=== PATIENT | female | born 1945 | race Caucasian/White ===

== ENCOUNTER 2023-12-12 18:12 | Inpatient (IN) ==
[2023-12-12] MEDS ORDERED: IOPAMIDOL 100 ML BOTTLE IV ONE (18:13)
[2023-12-12 19:07] LABS: Basophils # (Auto) 0.01 K/mcL (0.00-0.30); Basophils % (Auto) 0.1 % (0.0-2.0); Eosinophils # (Auto) 0.16 K/mcL (0.00-0.70); Hematocrit 42.6 % (34.1-44.9); Hemoglobin 14.5 g/dL (11.2-15.7); Lymphocytes # (Auto) 1.15 K/mcL (1.50-4.80); Lymphocytes % (Auto) 14.1 % (15.5-49.0); Mean Cell Volume 99.1 fL (80.0-100.0); Mean Platelet Volume 12.6 fL (8.8-12.5); Monocytes % (Auto) 11.1 % (1.0-12.0); Neutrophils % (Auto) 72.5 % (38.0-78.0); Platelet Count 139 K/mcL (140-440); Red Cell Distribution Width 12.4 % (11.5-14.5); WBC 8.1 K/mcL (4.5-11.0)
[2023-12-12] MEDS: PIPERACILLIN SODIUM/TAZOBACTAM 3.375 GM in DEXTROSE 5% IN WATER 50 ML IV ONE (20:36)
[2023-12-12 21:00] LABS: ALT/SGPT 17 U/L (<40); AST/SGOT 21 U/L (<32); Albumin 3.4 gm/dL (3.2-5.2); Albumin/Globulin Ratio 1.2 (1.0-2.3); Alkaline Phosphatase 86 U/L (39-117); Bilirubin,Total 0.5 mg/dL (0.1-1.0); Blood Urea Nitrogen 30 mg/dL (8-23); Calcium 8.9 mg/dL (8.6-10.4); Carbon Dioxide 23 mmol/L (22-30); Chloride 97 mmol/L (96-108); Globulin 2.9 gm/dL (2.2-3.7); Glomerular Filtration Rate 60; Glucose 156 mg/dL (70-105); Potassium 3.9 mmol/L (3.3-5.1); Sodium 131 mmol/L (133-145)
[2023-12-12 21:02] LABS: Appearance,Urine Clear (Clear); Bilirubin,Urine Negative (Negative); Color,Urine Yellow; Glucose,Urine (UA) Negative (Negative); Ketones,Urine Trace mg/dL (Negative); Leukocyte Esterase,Urine Negative /uL (Negative); Nitrate,Urine Negative (Negative); Protein,Urine Negative (Negative); Urine Blood Trace-intact ery/mcL (Negative); Urine RBC 1 /hpf (0-3); Urine Squamous Epithelial Cell 2 /hpf (0-4); Urine WBC 1 /hpf (0-4); Urobilinogen,Urine Normal
[2023-12-12] MEDS: metroNIDAZOLE 500 MG/100 ML BAG IV SCH (21:55)
[2023-12-12] MEDS: DEXTROSE 5%-LR 1,000 ML IV SCH (22:12)
[2023-12-12] MEDS: CIPROFLOXACIN 400 MG/200 ML BAG IV SCH (22:56)
[2023-12-12] MEDS ORDERED: fentaNYL 100 MCG/2 ML VIAL ONE (23:00)
[2023-12-12] MEDS ORDERED: PROPOFOL 200 MG/20 ML VIAL IV ONE (23:00)
[2023-12-12] MEDS ORDERED: LIDOCAINE 2% PF 5 ML VIAL ONE (23:01)
[2023-12-12] MEDS ORDERED: ONDANSETRON 4 MG/2 ML VIAL ONE (23:01)
[2023-12-12] MEDS ORDERED: MAGNESIUM SULFATE 2 GM/50 ML BAG IV ONE (23:01)
[2023-12-12] MEDS ORDERED: ROCURONIUM 10 MG/ML ML IV ONE (23:01)
[2023-12-12] MEDS ORDERED: DEXAMETHASONE 10 MG/ML VIAL ONE (23:01)
[2023-12-12] MEDS: BUPIVACAINE W/EPI 0.5% 50 ML VIAL IJ ONE (23:59)
[2023-12-13] MEDS ORDERED: PHENYLephrine 1 MG/10 ML SYRINGE (ANEST) ONE
[2023-12-13] MEDS ORDERED: ONDANSETRON 4 MG/2 ML VIAL IV PRN (00:52)
[2023-12-13] MEDS ORDERED: LACTATED RINGERS 250 ML IV PRN (00:52)
[2023-12-13] MEDS ORDERED: IPRATROPIUM/ALBUTEROL 3 ML AMPUL.NEB NEB PRN (00:52)
[2023-12-13] MEDS ORDERED: diphenhydrAMINE 50 MG/ML VIAL IV PRN (00:52)
[2023-12-13] MEDS ORDERED: fentaNYL 100 MCG/2 ML VIAL IV PRN (00:52)
[2023-12-13] MEDS ORDERED: NALOXONE HCL 0.4 MG/ML VIAL IV PRN (00:52)
[2023-12-13] MEDS ORDERED: MEPERIDINE 25 MG/ML VIAL IV PRN (00:52)
[2023-12-13] MEDS ORDERED: SUGAMMADEX SODIUM 200 MG/2 ML VIAL IV ONE (01:03)
[2023-12-13] MEDS: ACETAMINOPHEN 1,000 MG/100 ML BAG IV ONE (01:37)
[2023-12-13] MEDS: LACTATED RINGERS 1,000 ML IV SCH (02:02)
[2023-12-13 06:40] LABS: Hematocrit 41.5 % (34.1-44.9); Hemoglobin 14.2 g/dL (11.2-15.7); Mean Cell Volume 98.8 fL (80.0-100.0); Mean Corpuscular HGB Conc 34.2 g/dL (31.0-36.0); Mean Platelet Volume 11.8 fL (8.8-12.5); Platelet Count 133 K/mcL (140-440); Red Cell Distribution Width 12.4 % (11.5-14.5); WBC 9.4 K/mcL (4.5-11.0)
[2023-12-13 06:55] LABS: Blood Urea Nitrogen 24 mg/dL (8-23); Calcium 8.4 mg/dL (8.6-10.4); Carbon Dioxide 22 mmol/L (22-30); Chloride 96 mmol/L (96-108); Glomerular Filtration Rate 60; Glucose 314 mg/dL (70-105); Potassium 3.2 mmol/L (3.3-5.1); Sodium 130 mmol/L (133-145)
[2023-12-13] MEDS: HYDROmorphone 0.5 MG/0.5 ML SYRINGE IV PRN (10:17)
[2023-12-13] MEDS: OMEPRAZOLE 20 MG CAPSULE PO ONE (14:59)
[2023-12-13] MEDS: DEXTROSE 5%-LR 1,000 ML IV SCH (20:32)
[2023-12-14] MEDS: PANTOPRAZOLE 40 MG VIAL IV SCH (00:39)
[2023-12-14] MEDS: ONDANSETRON 4 MG/2 ML VIAL ONE (00:39)
[2023-12-14] MEDS: METOCLOPRAMIDE 10 MG/2 ML VIAL ONE (00:39)
[2023-12-14] MEDS: METOCLOPRAMIDE 10 MG/2 ML VIAL IV ONE (00:40)
[2023-12-14] MEDS: ONDANSETRON 4 MG/2 ML VIAL IV PRN (00:40)
[2023-12-14] MEDS: PANTOPRAZOLE 40 MG VIAL IV ONE (00:49)
[2023-12-14 06:42] LABS: Hematocrit 38.7 % (34.1-44.9); Hemoglobin 12.8 g/dL (11.2-15.7); Mean Cell Volume 102.4 fL (80.0-100.0); Mean Corpuscular HGB Conc 33.1 g/dL (31.0-36.0); Mean Platelet Volume 11.6 fL (8.8-12.5); Platelet Count 129 K/mcL (140-440); RBC 3.78 M/mcL (3.59-5.38); Red Cell Distribution Width 12.6 % (11.5-14.5); WBC 9.7 K/mcL (4.5-11.0)
[2023-12-14 07:22] LABS: Blood Urea Nitrogen 24 mg/dL (8-23); Calcium 8.7 mg/dL (8.6-10.4); Carbon Dioxide 23 mmol/L (22-30); Chloride 99 mmol/L (96-108); Glomerular Filtration Rate 82; Glucose 148 mg/dL (70-105); Potassium 3.3 mmol/L (3.3-5.1); Sodium 131 mmol/L (133-145)
[2023-12-14] MEDS ORDERED: POTASSIUM CHLORIDE 10 MEQ TABLET PO SCH (08:00)
[2023-12-14] MEDS ORDERED: OMEPRAZOLE 20 MG CAPSULE PO SCH (09:00)
[2023-12-14] MEDS ORDERED: ATORVASTATIN 20 MG TABLET PO SCH (09:00)
[2023-12-14] MEDS ORDERED: LISINOPRIL 5 MG TABLET PO SCH (09:00)
[2023-12-14] MEDS: VIT A,C & E/LUTEIN/MINERALS TABLET PO SCH (09:58)
[2023-12-14] MEDS: LISINOPRIL 5 MG TABLET PO SCH (09:58)
[2023-12-14] MEDS: ATORVASTATIN 20 MG TABLET PO SCH (09:58)
[2023-12-14] MEDS: TRIAMTERENE/HYDROCHLOROTHIAZID 1 CAP CAPSULE PO SCH (09:58)
[2023-12-14] MEDS: OMEPRAZOLE 20 MG CAPSULE PO SCH (16:37)
[2023-12-15 06:55] LABS: Basophils # (Auto) 0.01 K/mcL (0.00-0.30); Basophils % (Auto) 0.1 % (0.0-2.0); Eosinophils # (Auto) 0.08 K/mcL (0.00-0.70); Eosinophils % (Auto) 0.8 % (0.0-7.0); Hematocrit 34.9 % (34.1-44.9); Hemoglobin 11.9 g/dL (11.2-15.7); Lymphocytes # (Auto) 0.85 K/mcL (1.50-4.80); Lymphocytes % (Auto) 8.8 % (15.5-49.0); Mean Cell Volume 99.4 fL (80.0-100.0); Mean Corpuscular HGB Conc 34.1 g/dL (31.0-36.0); Mean Platelet Volume 11.3 fL (8.8-12.5); Monocytes # (Auto) 0.81 K/mcL (0.10-0.90); Monocytes % (Auto) 8.4 % (1.0-12.0); Neutrophils % (Auto) 81.3 % (38.0-78.0); Platelet Count 125 K/mcL (140-440); RBC 3.51 M/mcL (3.59-5.38); Red Cell Distribution Width 12.5 % (11.5-14.5); WBC 9.6 K/mcL (4.5-11.0)
[2023-12-15 07:49] LABS: Blood Urea Nitrogen 14 mg/dL (8-23); Calcium 8.1 mg/dL (8.6-10.4); Carbon Dioxide 24 mmol/L (22-30); Chloride 99 mmol/L (96-108); Glomerular Filtration Rate 82; Glucose 156 mg/dL (70-105); Potassium 3.2 mmol/L (3.3-5.1); Sodium 131 mmol/L (133-145)
[2023-12-15] MEDS: DEXTROSE 5%-LR 1,000 ML IV SCH (12:01)
[2023-12-16] MEDS: PANTOPRAZOLE 40 MG TABLET PO SCH (17:23)
[2023-12-17] MEDS: metroNIDAZOLE 500 MG TABLET PO SCH (13:52)
[2023-12-17] MEDS ORDERED: ACETAMINOPHEN 325 MG TABLET PO PRN (14:26)
[2023-12-17] MEDS: CIPROFLOXACIN 500 MG TABLET PO SCH (21:15)
[2023-12-18 06:21] LABS: Hematocrit 33.6 % (34.1-44.9); Hemoglobin 11.8 g/dL (11.2-15.7); Mean Cell Volume 97.1 fL (80.0-100.0); Mean Corpuscular HGB Conc 35.1 g/dL (31.0-36.0); Mean Platelet Volume 10.6 fL (8.8-12.5); Platelet Count 166 K/mcL (140-440); RBC 3.46 M/mcL (3.59-5.38); Red Cell Distribution Width 12.2 % (11.5-14.5); WBC 8.1 K/mcL (4.5-11.0)
[2023-12-18 06:47] LABS: Blood Urea Nitrogen 10 mg/dL (8-23); Calcium 8.7 mg/dL (8.6-10.4); Carbon Dioxide 25 mmol/L (22-30); Chloride 99 mmol/L (96-108); Glomerular Filtration Rate 82; Glucose 122 mg/dL (70-105); Potassium 3.4 mmol/L (3.3-5.1); Sodium 134 mmol/L (133-145)
== END 2023-12-18 14:22 | disposition home or self-care (01) ==
LOC: ED 18:12 → SUR 23:11 → MEDSUR 12-13 01:45
PROVIDERS: ADMIT Surgery Surgical Critical Care; ATTEND Surgery Surgical Critical Care
PROC: LAPAPPY (ICD-10-PCS; 2023-12-12 23:40)

== ENCOUNTER 2024-06-23 06:32 | Inpatient (IN) ==
[2024-06-23] MEDS ORDERED: IOPAMIDOL 100 ML BOTTLE IV ONE (06:33)
[2024-06-23 07:29] LABS: Basophils # (Auto) 0.01 K/mcL (0.00-0.30); Basophils % (Auto) 0.5 % (0.0-2.0); Eosinophils # (Auto) 0 K/mcL (0.00-0.70); Eosinophils % (Auto) 0 % (0.0-7.0); Hematocrit 38.6 % (34.1-44.9); Lymphocytes # (Auto) 0.37 K/mcL (1.50-4.80); Lymphocytes % (Auto) 19.4 % (15.5-49.0); Mean Corpuscular HGB Conc 33.7 g/dL (31.0-36.0); Mean Platelet Volume 12.1 fL (8.8-12.5); Monocytes # (Auto) 0.36 K/mcL (0.10-0.90); Monocytes % (Auto) 18.8 % (1.0-12.0); Neutrophils % (Auto) 60.8 % (38.0-78.0); Platelet Count 78 K/mcL (140-440); RBC 3.94 M/mcL (3.59-5.38); Red Cell Distribution Width 12.9 % (11.5-14.5); WBC 1.9 K/mcL (4.5-11.0)
[2024-06-23 07:34] LABS: Partial Thromboplastin Time 29.2 sec (20.0-37.0); Prothrombin Time 14.1 sec (11.9-14.5)
[2024-06-23] MEDS: ASPIRIN 81 MG TAB.CHEW CHEWED ONE (07:35)
[2024-06-23 07:37] LABS: ALT/SGPT 18 U/L (<40); AST/SGOT 19 U/L (<32); Albumin 2.7 gm/dL (3.2-5.2); Albumin/Globulin Ratio 1.2 (1.0-2.3); Alkaline Phosphatase 55 U/L (39-117); Bilirubin,Total 0.4 mg/dL (0.1-1.0); Blood Urea Nitrogen 19 mg/dL (8-23); Calcium 8.3 mg/dL (8.6-10.4); Carbon Dioxide 22 mmol/L (22-30); Chloride 98 mmol/L (96-108); Globulin 2.2 gm/dL (2.2-3.7); Glomerular Filtration Rate 69; Glucose 126 mg/dL (70-105); Potassium 3.3 mmol/L (3.3-5.1); Sodium 129 mmol/L (133-145)
[2024-06-23] MEDS: 0.9 % SODIUM CHLORIDE 1,000 ML IV ONE ×2 (07:47→14:34)
[2024-06-23 07:55] LABS: Alcohol, Blood < 10.1 mg/dL; Alcohol,Blood < 0.010 gm/dL (<0.010)
[2024-06-23 08:45] LABS: Appearance,Urine Clear (Clear); Bilirubin,Urine Negative (Negative); Color,Urine Yellow; Glucose,Urine (UA) Negative (Negative); Ketones,Urine Trace mg/dL (Negative); Leukocyte Esterase,Urine Negative /uL (Negative); Nitrate,Urine Negative (Negative); Protein,Urine Negative (Negative); Specific Gravity,Urine 1.015 (1.000-1.035); Urine Blood Negative ery/mcL (Negative); Urine RBC 0 /hpf (0-3); Urine Squamous Epithelial Cell 0 /hpf (0-4); Urine WBC 1 /hpf (0-4); Urobilinogen,Urine Normal
[2024-06-23] MEDS: ceFAZolin 1 GM VIAL IV ONE (10:51)
[2024-06-23] MEDS: DIPH,PERTUSS(ACELL),TET VAC/PF 0.5 ML SYRINGE IM ONE (10:51)
[2024-06-23 12:39] LABS: Band Neutrophils % 2 % (0-10); Basophils % (Manual) 1 % (0-2); Eosinophils % (Manual) 2 % (0-7); Lymphocytes % 16 % (15-49); Monocytes % (Manual) 17 % (1-12); Platelet Estimate DECREASED (Normal); RBC Morphology NORMAL (Normal); Segmented Neutrophils % 63 % (38-78)
[2024-06-23] MEDS ORDERED: MAGNESIUM SULFATE 2 GM/50 ML BAG IV PRN (13:41)
[2024-06-23] MEDS ORDERED: IPRATROPIUM/ALBUTEROL 3 ML AMPUL.NEB NEB PRN (13:41)
[2024-06-23] MEDS ORDERED: METOCLOPRAMIDE 10 MG/2 ML VIAL IV PRN (13:41)
[2024-06-23] MEDS ORDERED: METOPROLOL TARTRATE 5 MG/5 ML VIAL IV PRN (13:41)
[2024-06-23] MEDS ORDERED: SENNOSIDES 1 TABLET PO PRN (13:41)
[2024-06-23] MEDS ORDERED: POTASSIUM CHLORIDE 40 MEQ in DEXTROSE 5% IN WATER 500 ML IV PRN (13:41)
[2024-06-23] MEDS ORDERED: POLYETHYLENE GLYCOL 3350 17 GM PACKET PO PRN (13:41)
[2024-06-23] MEDS ORDERED: ONDANSETRON 4 MG/2 ML VIAL IV PRN (13:41)
[2024-06-23] MEDS ORDERED: POTASSIUM CHLORIDE 20 MEQ TABLET PO PRN (13:41)
[2024-06-23] MEDS: CEPHALEXIN 500 MG CAPSULE PO SCH (14:34)
[2024-06-23] MEDS: MAGNESIUM SULFATE 2 GM/50 ML BAG IV ONE (14:35)
[2024-06-23] MEDS: ACETAMINOPHEN 325 MG TABLET PO PRN (20:33)
[2024-06-24 06:55] LABS: ALT/SGPT 18 U/L (<40); AST/SGOT 24 U/L (<32); Albumin 2.9 gm/dL (3.2-5.2); Albumin/Globulin Ratio 1.4 (1.0-2.3); Alkaline Phosphatase 62 U/L (39-117); Bilirubin,Direct < 0.2 mg/dL (0-0.3); Bilirubin,Total 0.3 mg/dL (0.1-1.0); Blood Urea Nitrogen 18 mg/dL (8-23); Calcium 8.4 mg/dL (8.6-10.4); Carbon Dioxide 22 mmol/L (22-30); Chloride 101 mmol/L (96-108); Globulin 2.1 gm/dL (2.2-3.7); Glomerular Filtration Rate 82; Glucose 97 mg/dL (70-105); Lactate Dehydrogenase 153 U/L (135-225); Phosphorous 2.8 mg/dL (2.5-4.5); Potassium 3.4 mmol/L (3.3-5.1); Sodium 132 mmol/L (133-145); Triglycerides 52 mg/dL (<150); Uric Acid 3.7 mg/dL (2.5-8.0)
[2024-06-24 07:00] LABS: Basophils # (Auto) 0.01 K/mcL (0.00-0.30); Basophils % (Auto) 0.4 % (0.0-2.0); Eosinophils # (Auto) 0 K/mcL (0.00-0.70); Eosinophils % (Auto) 0 % (0.0-7.0); Hematocrit 39.7 % (34.1-44.9); Hemoglobin 13.5 g/dL (11.2-15.7); Lymphocytes # (Auto) 0.62 K/mcL (1.50-4.80); Lymphocytes % (Auto) 23.1 % (15.5-49.0); Mean Cell Volume 97.5 fL (80.0-100.0); Mean Platelet Volume 12.9 fL (8.8-12.5); Monocytes # (Auto) 0.44 K/mcL (0.10-0.90); Monocytes % (Auto) 16.4 % (1.0-12.0); Neutrophils % (Auto) 59.7 % (38.0-78.0); Platelet Count 70 K/mcL (140-440); RBC 4.07 M/mcL (3.59-5.38); Red Cell Distribution Width 12.8 % (11.5-14.5); WBC 2.7 K/mcL (4.5-11.0)
[2024-06-24] MEDS: ENOXAPARIN 40 MG/0.4 ML SYRINGE SQ SCH (08:36)
[2024-06-24] MEDS: POTASSIUM CHLORIDE 20 MEQ TABLET PO PRN (08:37)
[2024-06-24] MEDS: LISINOPRIL 5 MG TABLET PO SCH (13:20)
[2024-06-24] MEDS: OMEPRAZOLE 20 MG CAPSULE PO SCH (13:21)
[2024-06-25 06:13] LABS: Basophils # (Auto) 0.01 K/mcL (0.00-0.30); Basophils % (Auto) 0.3 % (0.0-2.0); Eosinophils # (Auto) 0.01 K/mcL (0.00-0.70); Eosinophils % (Auto) 0.3 % (0.0-7.0); Hematocrit 40.7 % (34.1-44.9); Hemoglobin 13.7 g/dL (11.2-15.7); Lymphocytes # (Auto) 0.94 K/mcL (1.50-4.80); Lymphocytes % (Auto) 29.9 % (15.5-49.0); Mean Cell Volume 96.7 fL (80.0-100.0); Mean Corpuscular HGB Conc 33.7 g/dL (31.0-36.0); Mean Platelet Volume 12.6 fL (8.8-12.5); Monocytes # (Auto) 0.46 K/mcL (0.10-0.90); Monocytes % (Auto) 14.6 % (1.0-12.0); Neutrophils % (Auto) 54.6 % (38.0-78.0); Platelet Count 76 K/mcL (140-440); RBC 4.21 M/mcL (3.59-5.38); Red Cell Distribution Width 12.9 % (11.5-14.5); WBC 3.1 K/mcL (4.5-11.0)
[2024-06-25 06:24] LABS: Blood Urea Nitrogen 17 mg/dL (8-23); Calcium 8.8 mg/dL (8.6-10.4); Carbon Dioxide 22 mmol/L (22-30); Chloride 103 mmol/L (96-108); Glomerular Filtration Rate 86; Glucose 95 mg/dL (70-105); Potassium 3.7 mmol/L (3.3-5.1); Sodium 133 mmol/L (133-145)
[2024-06-25 07:30] VITALS: O2SAT 97
[2024-06-25] MEDS: ATORVASTATIN 20 MG TABLET PO SCH (09:01)
[2024-06-25 09:06] VITALS: TEMP 97.3
== END 2024-06-25 08:53 | disposition home or self-care (01) | DRG 312 ==
LOC: ED 06:32 → ICU 13:35
PROVIDERS: ADMIT Internal Medicine; ATTEND Internal Medicine